=== PATIENT | female | born 1955 | race American Indian/Alaskan Native ===

== ENCOUNTER 2016-11-17 10:39 | Emergency (ER) | payer MEDICARE ==
[2016-11-17] MEDS ORDERED: XYLOCAINE 2%/EPI 1:100,000 INFILTRATI ONE (13:11)
--- NOTE | 2016-11-17 13:12 | Emergency Department Report ---
ED Fall HPI - General Chief Complaint: Fall Stated Complaint: FALL/LAC ON BACK OF HEAD Time Seen by Provider: 11/17/16 13:01 Source: patient, RN notes reviewed Mode of arrival: Stretcher Limitations: No Limitations - History of Present Illness Initial Comments: Primary care Dr.: Dr. Wolf ( [facility]) Past medical history: Diabetes and hypertension This is a 61-year-old female. She is previously unknown to me. She presents to the ER status post mechanical fall. Patient reports that she slipped up with her feet, and landed on her scalp. She did not pass out, she did not lose consciousness. No extremity weakness. No extremity numbness. May have had slight dizziness right after the fall. She is up-to-date with tetanus vaccinations. 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 Fall Witnessed: no Place Fall Occurred: home Loss of Consciousness: yes Prolonged Down Time?: yes Symptoms Prior to Fall: none Severity: mild Context: tripped/slipped Associated Symptoms: denies: neck pain, numbness, weakness, chest paint, shortness of breath, abdominal pain, hematuria, unable to walk, lightheaded, vertigo - Related Data Allergies Allergy/AdvReac Type Severity Reaction Status Date / Time No Known Allergies Allergy Unverified 11/17/16 11:04 ED Review of Systems ROS: Stated complaint: FALL/LAC ON BACK OF HEAD Other details as noted in HPI Constitutional: denies: fever Eyes: denies: vision change ENT: denies: throat pain Respiratory: denies: cough Cardiovascular: denies: chest pain Gastrointestinal: denies: abdominal pain Genitourinary: as per HPI, dysuria Skin: as per HPI Neurological: denies: weakness, numbness, paresthesias, confusion, abnormal gait , vertigo Psychiatric: as per HPI ED Past Medical Hx - Past Medical History Hx Hypertension: Yes Hx Diabetes: Yes - Surgical History Additional Surgical History: tubal ligation - Social History Smoking Status: Former Smoker Substance Use Type: None ED Physical Exam - General Limitations: No Limitations General appearance: alert, in no apparent distress - Head Head exam: Present: normocephalic, other (there is a right-sided occipital scalp laceration, 3 cm near the midline. There is no obvious foreign body.) - Eye Eye exam: Present: normal appearance, PERRL, EOMI. Absent: nystagmus - ENT ENT exam: Present: normal exam, mucous membranes dry, mucous membranes moist, normal external ear exam - Neck Neck exam: Present: normal inspection, full ROM. Absent: tenderness, meningismus - Respiratory Respiratory exam: Present: normal lung sounds bilaterally. Absent: respiratory distress, wheezes, rales, rhonchi, stridor, chest wall tenderness - Cardiovascular Cardiovascular Exam: Present: regular rate, normal rhythm, normal heart sounds. Absent: bradycardia, tachycardia, irregular rhythm, systolic murmur, diastolic murmur, rubs, gallop - GI/Abdominal GI/Abdominal exam: Present: soft, normal bowel sounds. Absent: distended, tenderness, guarding, rebound, rigid, pulsatile mass - Extremities Exam Extremities exam: Present: normal inspection, full ROM, normal capillary refill. Absent: tenderness, pedal edema, joint swelling, calf tenderness - Back Exam Back exam: Present: normal inspection, full ROM. Absent: tenderness, CVA tenderness (R), CVA tenderness (L), muscle spasm, paraspinal tenderness, vertebral tenderness - Neurological Exam Neurological exam: Present: alert, oriented X3, normal gait, other (Extraocular movements intact. Tongue midline. No facial droop. Facial sensation intact to light touch in the V1, V2, V3 distribution bilaterally. 5 and 5 strength in 4 extremities.. Sensation is intact to light touch in 4 extremities.). Absent : motor sensory deficit - Psychiatric Psychiatric exam: Present: normal affect, normal mood - Skin Skin exam: Present: other (3 cm posterior scalp laceration) ED Course Vital Signs 11/17/16 11/17/16 11:04 12:09 Temperature 98.6 F Pulse Rate 87 Respiratory 16 Rate Blood Pressure 148/78 O2 Sat by Pulse 99 Oximetry - Reevaluation(s) Reevaluation #1: 11/17/16 15:07 Differential diagnoses: Concussion, mechanical fall, scalp laceration Assessment and plan: 61-year-old female status post mechanical fall with small scalp laceration. May have had a very mild concussion immediately post after. Has a GCS of 15, with an NIH score of 0. Neurologic exam is unremarkable. No chest pain or shortness of breath. No loss of consciousness. EKG obtained by nursing staff for her nonspecific symptoms, not morphologically consistent with STEMI, there is no prior for comparison. Noncontrast CT scan of the head is negative. The laceration was irrigated with copious sterile saline and adequate pressure, and closed with 5 interrupted shankar with good cosmetic approximation. Patient will be discharged in custody of family members, she is alert and oriented, and patient and family were educated as to the signs and symptoms of concussion. Patient will be discharged with instructions to follow-up with her outpatient primary care doctor. Return precautions are extensively reviewed. - Laceration /Wound Repair Right Posterior Head Wound Location: head Wound's Depth, Shape: into muscle, linear Wound Explored: clean Irrigated w/ Saline (ccs): 500 Betadine Prep?: Yes Anesthesia: Lidocaine w/ Epi Volume Anesthetic (ccs): 5 Number of Sutures: 5 ([place] applied) Layer Closure?: No Sterile Dressing Applied?: No Progress: The wound is anesthetized with 5 mL of 1% lidocaine with epinephrine. The wound is irrigated with 500 mL of sterile saline and adequate pressure. Wound is explored on a relatively bloodless field. No obvious foreign bodies are contaminants are noted. 5 interrupted shankar are placed, without difficulty, with appropriate cosmetic reapproximation. Patient tolerated procedure well. ED Medical Decision Making - Lab Data Vital Signs 11/17/16 11/17/16 11:04 12:09 Temperature 98.6 F Pulse Rate 87 Respiratory 16 Rate Blood Pressure 148/78 O2 Sat by Pulse 99 Oximetry - Radiology Data Radiology results: report reviewed, image reviewed normal sinus 77 bpm, norml intervals normal axis, non specific st depression "probably normal" no chest pain not consistent with stemi Critical care attestation.: If time is entered above; I have spent that time in minutes in the direct care of this critically ill patient, excluding procedure time. ED Disposition Clinical Impression: Fall, Laceration Disposition: DISCHARGED TO HOME OR SELFCARE Is pt being admited?: No Does the pt Need Aspirin: No Condition: Stable Instructions: Minor Head Injury (ED), Concussion (ED), Laceration (ED) Additional Instructions: Impression avoid heavy lifting. Avoid strenuous physical activity. At the scalp laceration evaluated by a medical professional in 48 hours for a wound check. [place] should come out in 7-10 days after placement. Follow-up with her primary care doctor or follow-up with in ER, or return to an urgent care center to have the shankar taken out. Symptoms of concussion include lightheadedness, dizziness, confusion, fatigue, malaise and forgetfulness. If he develops any severe headache, chest pain, abdominal pain, shortness of breath, extremity weakness, extremity numbness, please return to the ER right away. An EKG was performed, and demonstrated nonspecific abnormalities. This should be followed up by either her primary care doctor or market development specialist within the next 2 weeks. Fever convenience, I have listed numerous names, phone numbers, addresses of local market development specialist. Scalp laceration can be washed with gentle soap and water every 12-24 hours. It is very unlikely to get infected. Referrals: NURYS OCHOA MD [Primary Care Provider] - 3-5 Days BILL HDZ MD [Staff Physician] - 3-5 Days LINNEA RODRIGUEZ MD [Staff Physician] - 3-5 Days
[2016-11-17] MEDS ORDERED: NACL 0.9% 500 ML IR ONE (13:27)
[2016-11-17] MEDS ORDERED: NACL 0.9% IR ONE ×2 (14:00→14:15)
--- NOTE | 2016-11-17 14:39 | Cat Scan Report ---
CT HEAD WITHOUT CONTRAST INDICATION: Fall, concussion. COMPARISON: None similar at this institution. FINDINGS: Noncontrast head CT demonstrates normal ventricles and sulci without acute or recent infarct, hemorrhage, mass effect or midline shift. No abnormal extra-axial fluid collections. Posterior fossa structures and basilar cisterns appear within normal limits. Streak artifact from right earring partly degrades exam. Clear imaged paranasal sinuses and mastoid air cells. Mild atherosclerotic internal carotid artery calcifications. Intact calvarium. Right parietal scalp swelling/hematoma. Numerous radiopaque dental material incidentally noted. Cervical spondylosis. CONCLUSION: No acute intracranial CT abnormality with right parietal scalp swelling/hematoma and few other findings, as described. Thank you for the opportunity to participate in this patient's care.
[2016-11-17 15:33] VITALS: BP 118/74
== END 2016-11-17 15:32 | disposition home or self-care (01) ==
LOC: ED 10:39
DX: S01.01XA Laceration without foreign body of scalp, initial encounter (principal); I10 Essential (primary) hypertension; E11.9 Type 2 diabetes mellitus without complications; Z87.891 Personal history of nicotine dependence; W19.XXXA Unspecified fall, initial encounter; Y93.89 Activity, other specified; Y99.9 Unspecified external cause status; Y92.89 Other specified places as the place of occurrence of the external cause
CPT/HCPCS: 70450; 93005; 93010